=== PATIENT | female | born 1970 | race African-American/Black ===

== ENCOUNTER → 2021-10-16 11:34 | Outpatient (CLI) | payer BC, SELFPAY ==
--- NOTE | ~2021-10-16 | MM_ITS ---
EXAMINATION: MM screening [facility] BI w abigail HISTORY: Screening mammogram TECHNIQUE: Craniocaudal and mediolateral oblique 3-D tomosynthesis images were obtained and synthetic 2-D images were generated. CAD analysis was submitted and interpreted. COMPARISON: 02/23/2013, 01/23/2012, 07/02/2010 BREAST PARENCHYMAL COMPOSITION: There are scattered areas of fibroglandular density. FINDINGS: There is no evidence of suspicious mass, calcification, or architectural distortion to sugg est malignancy in either breast. There has been no suspicious interval change. IMPRESSION: 1. No mammographic evidence of malignancy. 2. Recommend routine screening mammography in one year. BI-RADS Category 1: Negative Reviewed, dictated and finalized at location A.
== END ==
PROVIDERS: Visit Provider Physician Assistant
DX: Z12.31 Encounter for screening mammogram for malignant neoplasm of breast (principal)
CPT/HCPCS: 77063; 77067

== ENCOUNTER 2022-04-23 12:15 | Outpatient (CLI) | payer BC, SELFPAY ==
[2022-04-23 19:43] LABS: Alanine Aminotransferase 22 U/L (6-35); Albumin Level 4.4 g/dL (3.5-5.1); Alkaline Phosphatase 61 U/L (38-126); Anion Gap 11 mmol/L (8-16); Aspartate Amino Transferase 37 U/L (14-36); Bilirubin,Total 0.4 mg/dL (0.2-1.3); Blood Urea Nitrogen 16 mg/dL (7-17); Calcium 8.7 mg/dL (8.4-10.2); Carbon Dioxide 25 mmol/L (22-30); Chloride 103 mmol/L (98-107); Cholesterol 238 mg/dL (0-200); Estimated Glomerular Filt Rate > 60; Glucose 109 mg/dL (65-110); HDL Direct 60 mg/dL; Potassium 3.7 mmol/L (3.4-5.0); Sodium 139 mmol/L (137-145); Triglycerides 78 mg/dL (<150)
[2022-04-23 19:54] LABS: LDL Cholesterol Direct 133 mg/dL
[2022-04-23 20:00] LABS: Thyroid Stimulating Hormone 0.776 uIU/mL (0.465-4.680)
[2022-04-23 20:10] LABS: Vitamin D 25 Hydroxy 13.3 ng/mL
[2022-04-23 20:40] LABS: Hemoglobin A1C 5.6 % (<5.7)
== END 2022-04-23 12:16 | disposition home or self-care (01) ==
LOC: ANHGOSHLAB 12:18
PROVIDERS: PCP Family Medicine; Visit Provider Nurse Practitioner
DX: E78.5 Hyperlipidemia, unspecified (principal); R73.01 Impaired fasting glucose; Z13.21 Encounter for screening for nutritional disorder; F32.9 Major depressive disorder, single episode, unspecified
CPT/HCPCS: 36415; 80053; 80061; 82306; 83036; 84443

== ENCOUNTER → 2022-04-23 12:27 | Outpatient (CLI) | payer BC, SELFPAY ==
--- NOTE | ~2022-04-23 | XR_ITS ---
XR thoracic spine 2V DATE: 04/23/2022 13:14 INDICATION: Back pain TECHNIQUE: AP and lateral views COMPARISON: None FINDINGS: There is a right-sided spinal ralph extending from T5 to L4 approximately. There is severe dextroscoliosis of the upper thoracic spine and severe rotatory levoscoliosis of the lower thoracic and lumbar spine. There is degenerative spurring of the thoracic spine. No thoracic spine fracture or dislocation or junito ne destruction is evident. No paraspinal soft tissue thickening is noted. IMPRESSION: Severe thoracic and lumbar scoliosis Right spinal ralph from T5-L4 Reviewed, dictated and finalized at location B.
--- NOTE | ~2022-04-23 | XR_ITS ---
XR lumbar spine 2-3V DATE: 04/23/2022 13:14 INDICATION: Back pain TECHNIQUE: AP, lateral, coned lateral lumbosacral views COMPARISON: None FINDINGS: Right spinal ralph thoracic region to the L4 area on the right. There is severe rotatory levoscoliosis of the lower thoracic and lumbar spine. There is degenerative disc disease throughout the lumbar spine, particularly severe at L5-S1. There is grade 1 anterolisthe sis at L5-S1. No lumbar spine fracture or bone destruction is noted. The sacroiliac joints are intact. IMPRESSION: Grade 1 anterolisthesis and severe degenerative disc disease at L5-S1 Severe rotatory levoscoliosis of the lower thoracic and lumbar spine Right spinal rods terminating at L4 Reviewed, dictated and finalized at location B. IMPRESSION: Grade 1 anterolisthesis and severe degenerative disc disease at L5- S1 Severe rotatory levoscoliosis of the lower thoracic and lumbar spine Right spinal rods terminating at L4
== END ==
PROVIDERS: PCP Nurse Practitioner; Visit Provider Nurse Practitioner
DX: M47.817 Spondylosis without myelopathy or radiculopathy, lumbosacral region (principal); M41.9 Scoliosis, unspecified
CPT/HCPCS: 72070; 72100

== ENCOUNTER 2023-05-10 12:06 | Emergency (ER) | payer BC, SELFPAY ==
--- NOTE | ~2023-05-10 | XR_ITS ---
XR chest 2V DATE: 05/10/2023 13:06 INDICATION: Cough, fatigue. Covid infection 3 weeks ago. TECHNIQUE: PA and lateral views COMPARISON: None FINDINGS: Severe thoracic and lumbar scoliosis. There is a thoracic spinal ralph. No pulmonary infiltrate or consolidation, pleural effusion or pulmonary vascular congestion or pneumo thorax is detected. IMPRESSION: No active pulmonary disease Severe thoracic and lumbar scoliosis, spinal ralph Reviewed, dictated and finalized at location A.
[2023-05-10 12:26] VITALS: BP 125/85; PULSE 77; RESP 16; TEMP 36.4; O2SAT 97
--- NOTE | 2023-05-10 12:35 | ED.GENADULT ---
HPI - General Adult General Chief complaint: Nausea/Vomiting/Diarrhea Stated complaint: COUGH/NAUSEA/TIRED/HEADACHE/VOMITING/DIARRHEA Source: patient and RN notes reviewed Mode of arrival: ambulatory Limitations: no limitations History of Present Illness HPI narrative: 53 y/o female with hx HTN presented for c/o fatigue for about 3 weeks. Also reports dizzy, nausea, and sweating yesterday on the first day back to work. 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 States she was dx with Covid early April, and after paxlovid she felt better. Reports persistent mild cough, worse at night and while talking. Pt developed n/v/d and fatigue about 2 weeks after covid. Reports the vomiting is resolved but continues to have decreased appetite, trying to continue with bland foods. Pt was seen by PCP 04/30 for these complaints, tested neg for flu. PCP provided Rx ondansetron and pt reports improvement. Currently denies dizziness, chest pain, palpitations, sob, wheezing, abd pain, n/v/d/f/c. Taking Delsym. Related Data Home Medications Medication Instructions Recorded Confirmed bupropion HCl 150 mg tablet,12 hr 300 mg PO DAILY 02/27/23 05/10/23 sustained-release (Wellbutrin SR) Allergies Allergy/AdvReac Type Severity Reaction Status Date / Time Sulfa (Sulfonamide Allergy Unknown Skin Verified 05/10/23 12:20 Antibiotics) Reaction Review of Systems Review of Systems: CONSTITUTIONAL: Endorses fatigue Denies body aches, fever, chills ENT: Denies rhinorrhea, congestion CARDIOVASCULAR: Denies chest pain, palpitations, or edema. RESPIRATORY: Denies cough or dyspnea. GASTROINTESTINAL: Denies abdominal pain, nausea, vomiting, diarrhea, hematochezia, melena, hematemesis GENITOURINARY: Denies dysuria, hematuria, or CVA tenderness. SKIN: Denies rash, itching, or wounds. MUSCULOSKELETAL: Denies back pain, joint pain, or myalgia. NEUROLOGIC: Denies headache, numbness, tingling, or weakness. All systems reviewed & are unremarkable except as noted in HPI and below PMFSH Past Medical History Medical History (Updated 05/10/23 @ 13:27 by Taylor Torres, STU) Hyperlipemia Hypertension Major depression, chronic Surgical History Surgical History H/O eye surgery (~11/05/21) History of back surgery (~1979) Family History Family History Mother Hypertension Pre-diabetes Grandparent Pancreatic cancer Other Lung cancer Social History Social History Smoking status: Never smoker Second hand tobacco smoke exposure: No Alcohol intake: never Substance use: never Substance use type: does not use Lack of Transportation: No Lack of Food: Never True Current Housing: I Have Housing Concerned About Future Housing: No Difficulty Paying Gas/Electric Bills: No Difficulty Paying for Meds: No Currently Unemployed: No Education: Bachelor's Degree Difficulty w/ Childcare or Family Care: No Living arrangements: alone Occupation/Education: occupation Gender identity (if verbalized by the patient): Female Comments At time of signature, I have reviewed and agree with nursing past medical, surgical, social and family history unless otherwise noted. Please see nursing chart for further information. There is no relevant family history pertinent to the presenting complaint Exam Narrative: GENERAL: Well-appearing, and in no acute distress. EYES: EOMI. Conjunctivae normal. ENT: Mucous membranes pink and moist. CHEST: No respiratory distress. Clear to auscultation. HEART: Regular rate and rhythm. No murmur appreciated. Normal peripheral pulses. ABDOMEN: abd soft, nondistended, normal active bowel sounds. Nontender abdomen, No guarding, rebound tenderness, asymmetry EXTREMITIES: Normal range
--- NOTE | 2023-05-10 13:39 | ECG_ITS ---
Measurements Intervals [place] Rate: 70 P: 41 WV: 191 QRS: 16 QRSD: 156 T: -2 QT: 455 QTc: 492 Interpretive Statements SINUS RHYTHM RIGHT BUNDLE BRANCH BLOCK [120+ ms QRS DURATION, UPRIGHT V1, 40+ ms S IN I/aVL/V4/V5/V6] ABNORMAL ECG NO PREVIOUS ECG AVAILABLE FOR COMPARISON Electronically Signed On 05-10-2023 15:25:51 CDT by Yandel Greene M.D.
== END 2023-05-10 13:28 | disposition home or self-care (01) ==
PROVIDERS: Emergency Provider Nurse Practitioner Family; PCP Family Medicine
DX: R53.83 Other fatigue (principal); Z86.16 Personal history of COVID-19; R94.31 Abnormal electrocardiogram [ECG] [EKG]; E78.5 Hyperlipidemia, unspecified; I10 Essential (primary) hypertension; F32.A Depression, unspecified
CPT/HCPCS: 71046; 93005; 99213; G0463

== ENCOUNTER 2023-05-13 16:40 | Emergency (ER) | payer BC, SELFPAY ==
[2023-05-13 16:49] VITALS: BP 130/68; PULSE 84; RESP 16; TEMP 36.5; O2SAT 96
--- NOTE | 2023-05-13 16:49 | ED.URI ---
HPI - URI/Sore Throat General Chief Complaint: Upper Respiratory Infection Stated Complaint: Covid symptoms Source: patient and RN notes reviewed Mode of arrival: ambulatory Limitations: no limitations History of Present Illness HPI Narrative: Patient is a 53-year-old female who presents to the [facility] with complaints cough and fatigue that has been ongoing several weeks. Patient states that she was diagnosed with COVID last month. She had been prescribed Paxil did and states that initially she felt better. She states that she was experiencing fever, headache, cough, congestion, nausea, and vomiting. She states that the nausea, vomiting, and fever have resided. However, she continues to have a frequent nonproductive cough and increased fatigue. She was seen at this facility on Friday and had a chest x-ray and EKG performed. She was told that the EKG was normal and the chest x-ray was negative. Patient called her primary care physician for follow-up and they advised that she come to the [facility] care for IV fluids. Patient was made aware that this is not done at an urgent care. Patient states that she came here just for IV fluids as she feels that it would make her feel better. She is not experiencing chest pain or shortness of breath at this time. She denies abdominal pain, vomiting, diarrhea, fever. She does not appear in any acute distress. Related Data Home Medications Medication Instructions Recorded Confirmed bupropion HCl 150 mg tablet,12 hr 300 mg PO DAILY 02/27/23 05/13/23 sustained-release (Wellbutrin SR) Allergies Allergy/AdvReac Type Severity Reaction Status Date / Time Sulfa (Sulfonamide Allergy Unknown Skin Verified 05/13/23 16:46 Antibiotics) Reaction Review of Systems Review of Systems: CONSTITUTIONAL: Denies fever, chills, or sweats. Reports fatigue. EYES: Denies visual changes, redness, or discharge. ENT: Denies otalgia and sore throat CARDIOVASCULAR: Denies chest pain, palpitations, or edema. RESPIRATORY: Reports cough but denies dyspnea. GASTROINTESTINAL: Denies abdominal pain, nausea, vomiting, or diarrhea. GENITOURINARY: Denies dysuria or hematuria. SKIN: Denies rash or itching. MUSCULOSKELETAL: Denies back pain, joint pain, or myalgia. NEUROLOGIC: Denies headache, numbness, or weakness. Pertinent positives per HPI. [facility] Past Medical History Medical History Hyperlipemia Hypertension Major depression, chronic Surgical History Surgical History H/O eye surgery (~11/05/21) History of back surgery (~1979) Family History Family History Mother Hypertension Pre-diabetes Grandparent Pancreatic cancer Other Lung cancer Social History Social History Smoking status: Never smoker Second hand tobacco smoke exposure: No Alcohol intake: never Substance use: never Substance use type: does not use Lack of Transportation: No Lack of Food: Never True Current Housing: I Have Housing Concerned About Future Housing: No Difficulty Paying Gas/Electric Bills: No Difficulty Paying for Meds: No Currently Unemployed: No Education: Bachelor's Degree Difficulty w/ Childcare or Family Care: No Living arrangements: alone Occupation/Education: occupation Gender identity (if verbalized by the patient): Female Comments At the time of my signature, I reviewed and agree with the nursing past medical, surgical, social, and family history. There is no relevant family history pertinent to the patient complaint. Exam Narrative: GENERAL: This is a well-nourished, well-developed patient, in no apparent distress. HEAD: normocephalic, atraumatic. EYES: Sclera clear/white. Vision is grossly intact. EARS: External ears normal
== END 2023-05-13 17:17 | disposition home or self-care (01) ==
PROVIDERS: Emergency Provider Nurse Practitioner; PCP Family Medicine
DX: U09.9 Post COVID-19 condition, unspecified (principal); E78.5 Hyperlipidemia, unspecified; I10 Essential (primary) hypertension; F32.9 Major depressive disorder, single episode, unspecified
CPT/HCPCS: 99211; G0463

== ENCOUNTER 2024-01-02 11:35 | Outpatient (CLI) | payer BC, SELFPAY ==
--- NOTE | ~2024-01-02 | MM_ITS ---
EXAMINATION: MM screening [facility] BI w abigail HISTORY: Screening TECHNIQUE: Craniocaudal and mediolateral oblique 3-D tomosynthesis images were obtained and synthetic 2-D images were generated. CAD analysis was submitted and interpreted. COMPARISON: Comparison to multiple prior studies sequentially, with oldest reviewed study dated 10/16. BREAST PARENCHYMAL COMPOSITION: Not dense: There are scattered areas of fibroglandular density. FINDINGS: There is no evidence of suspicious mass, calcification, or architectural distortion to sugg est malignancy in either breast. There has been no suspicious interval change. IMPRESSION: 1. No mammographic evidence of malignancy. 2. Recommend routine screening mammography in one year. BI-RADS Category 1: Negative Reviewed, dictated and finalized at location B.
== END 2024-01-02 11:36 ==
PROVIDERS: PCP Family Medicine; Visit Provider Family Medicine
DX: Z12.31 Encounter for screening mammogram for malignant neoplasm of breast (principal)
CPT/HCPCS: 77063; 77067

== ENCOUNTER 2025-01-20 12:36 | Outpatient (CLI) | payer BC, SELFPAY ==
--- NOTE | ~2025-01-20 | MM_ITS ---
EXAMINATION: MM screening [facility] BI w abigail HISTORY: Screening TECHNIQUE: Craniocaudal and mediolateral oblique 3-D tomosynthesis images were obtained and synthetic 2-D images were generated. CAD analysis was submitted and interpreted. COMPARISON: Comparison to multiple prior studies sequentially, with oldest reviewed study dated 10/16. BREAST PARENCHYMAL COMPOSITION: Not dense: There are scattered areas of fibroglandular density. FINDINGS: There is no evidence of suspicious mass, calcification, or architectural distortion to sugg est malignancy in either breast. There has been no suspicious interval change. IMPRESSION: 1. No mammographic evidence of malignancy. 2. Recommend routine screening mammography in one year. BI-RADS Category 1: Negative Reviewed, dictated and finalized at location A.
== END 2025-01-20 12:37 | disposition home or self-care (01) ==
LOC: MICIMG 12:37
PROVIDERS: PCP Family Medicine; Visit Provider Nurse Practitioner
DX: Z12.31 Encounter for screening mammogram for malignant neoplasm of breast (principal)
CPT/HCPCS: 77063; 77067

== ENCOUNTER 2025-02-10 11:11 | Outpatient (CLI) | payer BC, SELFPAY ==
--- NOTE | ~2025-02-10 | XR_ITS ---
EXAM/ PROCEDURE: XR thoracic spine 3V - 02/10/2025 11:18 CDT HISTORY: 54 years old Female with Thoracic scoliosis Thoracic scoliosis COMPARISON: None available TECHNIQUE: Two view(s) FINDINGS/ IMPRESSION: Diffuse osteopenia, limiting evaluation of nondisplaced fracture. Severe levoscoliosis of the thoraco lumbar spine. External hardware in the posterior spine. Visualized portion of the lungs are clear. Mi ld cardiomegaly. Reviewed, dictated and finalized at location A.
--- NOTE | ~2025-02-10 | XR_ITS ---
3 VIEWS LUMBAR SPINE Ordering provider: Ani Golden, NORBERT History: . Lumbar radiculopathy . Comparison: None. FINDINGS: VERTEBRAL BODIES:Levoscoliosis. Fixation of the spine by ralph is seen. No visible fracture or subluxa tion. Degenerative changes. Bilateral sacroiliacs. DISK SPACES: Narrowing of all the disc spaces. SOFT TISSUES: Normal. IMPRESSION: No acute osseous abnormality lumbar spine. Levoscoliosis with postoperative changes. Reviewed, dictated and finalized at location A.
== END 2025-02-10 11:12 | disposition home or self-care (01) ==
LOC: MICIMG 11:12
PROVIDERS: PCP Family Medicine; Visit Provider Physician Assistant
DX: M85.88 Other specified disorders of bone density and structure, other site (principal); S52.124A Nondisplaced fracture of head of right radius, initial encounter for closed fracture; X58.XXXA Exposure to other specified factors, initial encounter; M41.85 Other forms of scoliosis, thoracolumbar region; M41.86 Other forms of scoliosis, lumbar region; I51.7 Cardiomegaly; Z96.698 Presence of other orthopedic joint implants
CPT/HCPCS: 72072; 72110

== ENCOUNTER 2025-05-12 10:24 | Outpatient (CLI) | payer BC, SELFPAY ==
--- NOTE | ~2025-05-12 | MR_ITS ---
EXAMINATION: MR lumbar spine wo con DATE: 05/12/2025 10:49 INDICATION: Lumbar radiculopathy. Low back pain. TECHNIQUE: Magnetic resonance imaging (MRI) of the lumbar spine was performed without intravenous contrast. COMPARISON: Spine radiograph 02/10/2025 FINDINGS: There is 51 degrees levoscoliosis of thoracolumbar spine. There is fusion of the posterior elements from the thoracic spine to L4 with a fixation ralph. There are chronic bilateral L5 pars defects. There is 7 mm anterolisthesis of L5 on S1. There is mild chronic height loss of L5 vertebral body posteriorly. There is severely decreased disc height from the thoracic spine to L3-L4. There is severely decreased disc height at L5-S1 with endplate remodeling. The distal spinal cord signal intensity is normal. The conus medullaris is at L1-L2. The following disc levels are specifically discussed: L1-L2 through L3-L4: The disc does not extend beyond the endplate margin. There is no facet joint hypertrophy. There is no neural foraminal stenosis. There is no central canal stenosis. L4-L5: The disc is bulging. There is severe bilateral facet joint osteoarthritis. There is mild bilateral neural foraminal stenosis. Metal artifact obscures the central spinal canal at this level. L5-S1: The disc is bulging and has an annular fissure. There is severe bilateral facet joint osteoarthritis. There is mild bilateral neural foraminal stenosis. There is mild central canal stenosis. IMPRESSION: 1. Thoracolumbar levoscoliosis. Posterior fusion from the thoracic spine to L4. 2. Chronic bilateral L5 pars defects with grade 1 anterolisthesis of L5 on S1. 3. Severe spondylosis at L5-S1. Reviewed, dictated and finalized at location E.
== END 2025-05-12 10:25 | disposition home or self-care (01) ==
LOC: MICIMG 10:24
PROVIDERS: PCP Family Medicine; Visit Provider Physician Assistant
DX: M41.85 Other forms of scoliosis, thoracolumbar region (principal); Z98.1 Arthrodesis status; M43.15 Spondylolisthesis, thoracolumbar region; M47.817 Spondylosis without myelopathy or radiculopathy, lumbosacral region
CPT/HCPCS: 72148